=== PATIENT | female | born 1940 | race Caucasian/White ===

== ENCOUNTER 2018-10-06 06:43 | Day surgery (SDC) ==
[2018-10-06] MEDS: BETADINE OPTH PREP OP PRN ×2 (07:03→07:42)
[2018-10-06] MEDS: TETRACAINE 0.5% UNIT-DOSE OP PRN ×2 (07:03→07:42)
[2018-10-06] MEDS: CYCLOGYL 2% OPTH OP PRN ×3 (07:04→07:14)
[2018-10-06] MEDS ORDERED: LIDOCAINE 1% 20 ML MDV ID STA (07:10)
[2018-10-06] MEDS ORDERED: ZOFRAN 4 MG/2 ML IVP ONE (07:10)
[2018-10-06] MEDS ORDERED: BRIMONIDINE TARTRATE 0.2% OPTH SOL OP PRN (07:10)
[2018-10-06 07:16] VITALS: TEMP 98.1
[2018-10-06] MEDS ORDERED: ZOFRAN 4 MG/2 ML ONE (07:50)
[2018-10-06] MEDS ORDERED: SUBLIMAZE ONE (07:50)
[2018-10-06] MEDS ORDERED: VERSED ONE (07:50)
[2018-10-06] MEDS: LIDOCAINE 1%/PHENYLEPHRINE 1.5% BSS (SURGERY) INTRAOCULA ONE ×2 (07:55→07:58)
[2018-10-06] MEDS: BSS WITH EPINEPHRINE OP ONE ×2 (07:55→07:58)
[2018-10-06] MEDS: DEX-MOXI-KETOR OPTH INJ 1/0.5/0.4 MG/ML IO ONE ×2 (07:55→07:59)
[2018-10-06 08:36] VITALS: BP 134/73
== END 2018-10-06 08:50 | disposition home or self-care (01) ==
LOC: SURG 06:43
PROVIDERS: ATTEND Ophthalmology
DX: H25.12 Age-related nuclear cataract, left eye (principal)

== ENCOUNTER 2018-10-20 06:20 | Day surgery (SDC) ==
[2018-10-20] MEDS: CYCLOGYL 2% OPTH OP PRN ×3 (06:37→06:47)
[2018-10-20] MEDS: BETADINE OPTH PREP OP PRN ×2 (06:37→06:59)
[2018-10-20] MEDS: TETRACAINE 0.5% UNIT-DOSE OP PRN ×3 (06:37→07:19)
[2018-10-20 06:46] VITALS: TEMP 97.2
[2018-10-20] MEDS ORDERED: SUBLIMAZE ONE (07:15)
[2018-10-20] MEDS ORDERED: VERSED ONE (07:15)
[2018-10-20] MEDS ORDERED: ZOFRAN 4 MG/2 ML ONE (07:15)
[2018-10-20] MEDS ORDERED: ZOFRAN 4 MG/2 ML IVP ONE (07:22)
[2018-10-20] MEDS ORDERED: LIDOCAINE 1%/PHENYLEPHRINE 1.5% BSS (SURGERY) INTRAOCULA ONE (07:22)
[2018-10-20] MEDS ORDERED: DEX-MOXI-KETOR OPTH INJ 1/0.5/0.4 MG/ML IO ONE (07:22)
[2018-10-20] MEDS ORDERED: BRIMONIDINE TARTRATE 0.2% OPTH SOL OP PRN (07:22)
[2018-10-20] MEDS ORDERED: BSS WITH EPINEPHRINE OP ONE (07:22)
[2018-10-20 09:15] VITALS: BP 132/78
== END 2018-10-20 08:00 | disposition home or self-care (01) ==
LOC: SURG 06:20
PROVIDERS: ATTEND Ophthalmology
DX: H25.11 Age-related nuclear cataract, right eye (principal)